=== PATIENT | female | born 1940 | race Caucasian/White ===

== ENCOUNTER 2019-09-05 15:14 | Inpatient (IN) ==
[2019-09-06] MEDS ORDERED: Nitroglycerin 0.4 MG TAB.SUBL SL PRN (16:01)
[2019-09-06] MEDS ORDERED: Saliva Stimulant 100ml BOTTLE MM PRN (16:01)
[2019-09-06] MEDS ORDERED: Insulin DETEMIR 100 UNIT/ML per UNIT SQ ONE (20:41)
[2019-09-06] MEDS: *HR* Amiodarone 200 MG TABLET PO SCH (20:50)
[2019-09-06] MEDS: Apixaban 5 MG TABLET PO SCH (20:50)
[2019-09-06] MEDS: Insulin DETEMIR 100 UNIT/ML per UNIT SQ SCH (20:51)
[2019-09-06] MEDS: traZODone 50 MG TABLET PO SCH (20:51)
[2019-09-06] MEDS ORDERED: NON-FORMULARY MEDICATION 1 EACH EACH (Insulin Glargine [Lantus] 8 UNIT) SQ SCH (21:00)
[2019-09-07] MEDS: Acetaminophen 325 MG TABLET PO PRN ×2 (03:51→21:41)
[2019-09-07 06:53] LABS: Basophils % 0.5 %; Eosinophils # 0.1 K/mcL (0.0-0.6); Eosinophils % 1.4 %; Hematocrit 28.7 % (35.3-44.9); Hemoglobin 9.2 g/dL (11.5-15.4); Immature Granulocytes % 0.3 % (0-4); Lymphocytes # 0.8 K/mcL (0.6-4.6); Lymphocytes % 21.6 %; Mean Corpuscular HGB Conc 32.1 g/dL (31.6-35.5); Mean Corpuscular Hemoglobin 25.1 pg (28.0-33.3); Mean Corpuscular Volume 78.2 fL (83.0-100.0); Mean Platelet Volume 10.6 fL (9.4-12.4); Monocytes # 0.6 K/mcL (0.0-1.3); Monocytes % 15.9 %; Neutrophils # 2.2 K/mcL (1.6-8.9); Platelet Count 193 K/mcL (140-400); Red Blood Count 3.67 M/mcL (3.82-4.97); Red Cell Distribution Width 15.7 % (11.5-14.5); Segmented Neutrophils % 60.3 %; White Blood Count 3.7 K/mcL (4.3-11.1)
[2019-09-07 07:10] LABS: BUN/Creatinine Ratio 21 (6-26); Blood Urea Nitrogen 12 mg/dL (8-23); Calcium 8.7 mg/dL (8.6-10.3); Carbon Dioxide 27 mEq/L (23-29); Chloride 104 mEq/L (98-107); Glucose 94 mg/dL (70-105); Osmolality,Calculated 284 (280-300); Potassium 3.8 mEq/L (3.5-5.1); Sodium 137 mEq/L (136-145); eGFR For African Americans > 60 (> 60); eGFR For Non-African Americans > 60 (> 60)
[2019-09-07] MEDS: Loratadine 10 MG TABLET PO SCH (08:41)
[2019-09-07] MEDS: Fenofibrate 54 MG TABLET PO SCH (08:41)
[2019-09-07] MEDS: *HR* Amiodarone 200 MG TABLET PO SCH ×2 (08:42→21:42)
[2019-09-07] MEDS: Multivit/Ca/Min/Fe/FA 1 TAB TABLET PO SCH (08:42)
[2019-09-07] MEDS: Metoprolol XL (24 HR) Succ 25 MG TAB.ER.24H PO SCH (08:43)
[2019-09-07] MEDS: Apixaban 5 MG TABLET PO SCH ×2 (08:43→21:42)
[2019-09-07] MEDS: Lactobacillus 1 EACH CAP.SPRINK PO SCH (08:43)
[2019-09-07] MEDS: AFINITOR PO SCH (08:43)
[2019-09-07] MEDS: traZODone 50 MG TABLET PO SCH (21:42)
[2019-09-07] MEDS: Insulin DETEMIR 100 UNIT/ML per UNIT SQ SCH (21:48)
[2019-09-08 06:09] LABS: Basophils % 0.2 %; Eosinophils # 0.1 K/mcL (0.0-0.6); Eosinophils % 1.4 %; Hematocrit 28.9 % (35.3-44.9); Hemoglobin 9.3 g/dL (11.5-15.4); Immature Granulocytes % 0.5 % (0-4); Lymphocytes % 20.1 %; Mean Corpuscular HGB Conc 32.2 g/dL (31.6-35.5); Mean Corpuscular Hemoglobin 25.3 pg (28.0-33.3); Mean Corpuscular Volume 78.7 fL (83.0-100.0); Mean Platelet Volume 11.1 fL (9.4-12.4); Monocytes # 0.6 K/mcL (0.0-1.3); Monocytes % 14.5 %; Neutrophils # 2.7 K/mcL (1.6-8.9); Platelet Count 218 K/mcL (140-400); Red Blood Count 3.67 M/mcL (3.82-4.97); Red Cell Distribution Width 15.9 % (11.5-14.5); Segmented Neutrophils % 63.3 %; White Blood Count 4.2 K/mcL (4.3-11.1)
[2019-09-08 06:12] LABS: Lymphocytes # 0.8 K/mcL (0.6-4.6)
[2019-09-08] MEDS ORDERED: Apixaban 5 MG TABLET PO SCH (09:00)
[2019-09-08] MEDS: Lactobacillus 1 EACH CAP.SPRINK PO SCH (09:02)
[2019-09-08] MEDS: Fenofibrate 54 MG TABLET PO SCH (09:03)
[2019-09-08] MEDS: *HR* Amiodarone 200 MG TABLET PO SCH ×2 (09:03→21:28)
[2019-09-08] MEDS: Loratadine 10 MG TABLET PO SCH (09:04)
[2019-09-08] MEDS: Multivit/Ca/Min/Fe/FA 1 TAB TABLET PO SCH (09:04)
[2019-09-08] MEDS: Metoprolol XL (24 HR) Succ 25 MG TAB.ER.24H PO SCH (09:04)
[2019-09-08] MEDS: AFINITOR PO SCH (09:06)
[2019-09-08] MEDS ORDERED: Diphenoxylate/Atropine 1 TAB TABLET PO ONE (14:41)
[2019-09-08] MEDS: Acetaminophen 325 MG TABLET PO PRN ×2 (16:04→23:20)
[2019-09-08] MEDS: Apixaban 5 MG TABLET PO SCH (21:28)
[2019-09-08] MEDS: Insulin DETEMIR 100 UNIT/ML per UNIT SQ SCH (21:29)
[2019-09-08] MEDS: Diphenoxylate/Atropine 1 TAB TABLET PO PRN (21:29)
[2019-09-08] MEDS: traZODone 50 MG TABLET PO SCH (21:29)
[2019-09-09] MEDS: Apixaban 5 MG TABLET PO SCH ×2 (09:14→20:30)
[2019-09-09] MEDS: Metoprolol XL (24 HR) Succ 25 MG TAB.ER.24H PO SCH (09:14)
[2019-09-09] MEDS: Loratadine 10 MG TABLET PO SCH (09:14)
[2019-09-09] MEDS: Fenofibrate 54 MG TABLET PO SCH (09:14)
[2019-09-09] MEDS: *HR* Amiodarone 200 MG TABLET PO SCH (09:15)
[2019-09-09] MEDS: Lactobacillus 1 EACH CAP.SPRINK PO SCH (09:15)
[2019-09-09] MEDS: Multivit/Ca/Min/Fe/FA 1 TAB TABLET PO SCH (09:15)
[2019-09-09] MEDS: Acetaminophen 325 MG TABLET PO PRN ×2 (09:15→20:30)
[2019-09-09] MEDS: AFINITOR PO SCH (09:20)
[2019-09-09] MEDS: Diphenoxylate/Atropine 1 TAB TABLET PO PRN ×3 (09:43→22:28)
[2019-09-09] MEDS: traZODone 50 MG TABLET PO SCH (20:32)
[2019-09-09] MEDS: Insulin DETEMIR 100 UNIT/ML X5UNITS SQ SCH (20:35)
[2019-09-10] MEDS: Diphenoxylate/Atropine 1 TAB TABLET PO PRN ×2 (02:46→14:31)
[2019-09-10] MEDS: AFINITOR PO SCH (08:48)
[2019-09-10] MEDS: Fenofibrate 54 MG TABLET PO SCH (08:49)
[2019-09-10] MEDS: Loratadine 10 MG TABLET PO SCH (08:49)
[2019-09-10] MEDS: Apixaban 5 MG TABLET PO SCH ×2 (08:49→20:42)
[2019-09-10] MEDS: Multivit/Ca/Min/Fe/FA 1 TAB TABLET PO SCH (08:49)
[2019-09-10] MEDS: *HR* Amiodarone 200 MG TABLET PO SCH (08:49)
[2019-09-10] MEDS: Metoprolol XL (24 HR) Succ 25 MG TAB.ER.24H PO SCH (08:49)
[2019-09-10] MEDS: Lactobacillus 1 EACH CAP.SPRINK PO SCH (08:49)
[2019-09-10] MEDS: traZODone 50 MG TABLET PO SCH (20:42)
[2019-09-10] MEDS: Insulin DETEMIR 100 UNIT/ML X5UNITS SQ SCH (20:46)
[2019-09-11] MEDS: Diphenoxylate/Atropine 1 TAB TABLET PO PRN ×2 (01:23→12:26)
[2019-09-11] MEDS: Acetaminophen 325 MG TABLET PO PRN ×2 (01:27→20:13)
[2019-09-11 06:07] LABS: Basophils % 0.5 %; Eosinophils # 0.1 K/mcL (0.0-0.6); Eosinophils % 1.4 %; Hematocrit 28.1 % (35.3-44.9); Immature Granulocytes % 0.5 % (0-4); Lymphocytes # 0.8 K/mcL (0.6-4.6); Lymphocytes % 22.2 %; Mean Corpuscular Hemoglobin 25.4 pg (28.0-33.3); Mean Corpuscular Volume 79.2 fL (83.0-100.0); Mean Platelet Volume 10.6 fL (9.4-12.4); Monocytes # 0.7 K/mcL (0.0-1.3); Monocytes % 17.9 %; Neutrophils # 2.1 K/mcL (1.6-8.9); Platelet Count 246 K/mcL (140-400); Red Blood Count 3.55 M/mcL (3.82-4.97); Red Cell Distribution Width 16.4 % (11.5-14.5); Segmented Neutrophils % 57.5 %; White Blood Count 3.7 K/mcL (4.3-11.1)
[2019-09-11] MEDS: Loratadine 10 MG TABLET PO SCH (09:38)
[2019-09-11] MEDS: Multivit/Ca/Min/Fe/FA 1 TAB TABLET PO SCH (09:38)
[2019-09-11] MEDS: Lactobacillus 1 EACH CAP.SPRINK PO SCH (09:38)
[2019-09-11] MEDS: Apixaban 5 MG TABLET PO SCH ×2 (09:38→20:12)
[2019-09-11] MEDS: Fenofibrate 54 MG TABLET PO SCH (09:39)
[2019-09-11] MEDS: AFINITOR PO SCH (09:59)
[2019-09-11] MEDS: Metoprolol XL (24 HR) Succ 25 MG TAB.ER.24H PO SCH (10:11)
[2019-09-11] MEDS: *HR* Amiodarone 200 MG TABLET PO SCH (10:34)
[2019-09-11] MEDS ORDERED: Metoprolol XL (24 HR) Succ 25 MG TAB.ER.24H PO ONE (18:38)
[2019-09-11] MEDS: traZODone 50 MG TABLET PO SCH (20:12)
[2019-09-11] MEDS: Insulin DETEMIR 100 UNIT/ML X5UNITS SQ SCH (21:01)
[2019-09-12 07:44] VITALS: BP 117/73
[2019-09-12] MEDS: Multivit/Ca/Min/Fe/FA 1 TAB TABLET PO SCH (08:54)
[2019-09-12] MEDS: Loratadine 10 MG TABLET PO SCH (08:54)
[2019-09-12] MEDS: *HR* Amiodarone 200 MG TABLET PO SCH (08:54)
[2019-09-12] MEDS: Apixaban 5 MG TABLET PO SCH (08:54)
[2019-09-12] MEDS: Metoprolol XL (24 HR) Succ 25 MG TAB.ER.24H PO SCH (08:55)
[2019-09-12] MEDS: Fenofibrate 54 MG TABLET PO SCH (08:55)
[2019-09-12] MEDS: AFINITOR PO SCH (08:55)
[2019-09-12] MEDS: Lactobacillus 1 EACH CAP.SPRINK PO SCH (08:55)
== END 2019-09-12 14:07 | disposition home or self-care (01) | DRG 945 ==
LOC: INPGRE 09-06 14:24
PROVIDERS: ADMIT Family Medicine; ATTEND Family Medicine